=== PATIENT | female | born 1950 | race Caucasian/White ===

== ENCOUNTER 2018-11-20 07:50 | Day surgery (SDC) | payer OTHER ==
[~2018-11-20 07:50] MED LIST: DICY20TA PO; INTESTINEX1 CA1 PO; OXYC1TAB9 PO; POLY119PG PO; PROTONIX40 MG PO
== END 2018-11-20 12:20 | disposition home or self-care (01) ==
LOC: AMB-ENDOS 07:50
DX: K57.30 Diverticulosis of large intestine without perforation or abscess without bleeding (principal); K64.8 Other hemorrhoids